=== PATIENT | female | born 1955 | race Caucasian/White ===

== ENCOUNTER 2019-12-18 19:01 | Emergency (ER) | payer MEDICARE, BC ==
[2019-12-18] MEDS ORDERED: Diazepam 5 MG TAB ONE (20:10)
[2019-12-18] MEDS ORDERED: Dexamethasone 4 mg/ml Vial ONE (20:49)
== END 2019-12-18 21:11 | disposition home or self-care (01) ==
LOC: ERS 19:01
DX: T88.1XXA Other complications following immunization, not elsewhere classified, initial encounter (principal); M79.622 Pain in left upper arm; F32.9 Major depressive disorder, single episode, unspecified; M19.012 Primary osteoarthritis, left shoulder
CPT/HCPCS: 93005; J1100